=== PATIENT | female | born 1955 | race Caucasian/White ===

== ENCOUNTER 2016-08-16 11:15 | Emergency (ER) | payer OTHER ==
[~2016-08-16] VITALS: Ht 160 cm; Wt 71.5 kg
[~2016-08-16 11:15] MED LIST: HYDR25TA PO
[2016-08-16 11:37] VITALS: BP 157/95
== END 2016-08-16 12:48 | disposition home or self-care (01) ==
LOC: EMS 11:16
DX: S01.91XA Laceration without foreign body of unspecified part of head, initial encounter (principal); W61.92XA Struck by other birds, initial encounter; Y93.01 Activity, walking, marching and hiking; Y92.481 Parking lot as the place of occurrence of the external cause; Y99.8 Other external cause status
CPT/HCPCS: 99282

== ENCOUNTER → 2016-09-11 | Outpatient (CLI) | payer OTHER | END | disposition home or self-care (01) | LOC: EMPHLTH 10:52 | PROVIDERS: ATTEND Internal Medicine | DX: R76.11 Nonspecific reaction to tuberculin skin test without active tuberculosis (principal) ==

== ENCOUNTER 2017-07-04 09:07 | Day surgery (SDC) | payer OTHER ==
[~2017-07-04] VITALS: Ht 160 cm; Wt 71.4 kg
[~2017-07-04 09:07] MED LIST changes: +DICLOFENAC SODIUM 0.1% 2.5 ML OPHTHALMIC SOLUTION OD ONE; -HYDR25TA PO; +MOXIFLOXACIN HCL 0.5% 3 ML OPHTHALMIC SOLUTION OD ONE; +RINGERS SOLUTION,LACTATED 500 ML IV ONE
[2017-07-04] MEDS ORDERED: FentaNYL CITRATE-PF 100 MCG/2 ML VIAL IVP ONE (09:08)
[2017-07-04] MEDS ORDERED: MIDAZOLAM HCL 2 MG/2 ML VIAL IVP ONE (09:08)
[2017-07-04] MEDS ORDERED: RINGERS SOLUTION,LACTATED 500 ML IV ONE (09:13)
[2017-07-04] MEDS ORDERED: DICLOFENAC SODIUM 0.1% 2.5 ML OPHTHALMIC SOLUTION ONE (09:13)
[2017-07-04] MEDS ORDERED: MOXIFLOXACIN HCL 0.5% 3 ML OPHTHALMIC SOLUTION ONE (09:13)
[2017-07-04] MEDS ORDERED: MitoMYcin 0.2 MG/VIAL KIT FOR OPHTHALMIC USE OD ONE (10:30)
[2017-07-04] MEDS ORDERED: LIDOCAINE HCL 1%/EPI 1:200,000/PF 10 ML VIAL ONE (11:59)
[2017-07-04] MEDS ORDERED: BUPIVACAINE HCL/PF 0.75% 10 ML VIAL ONE (11:59)
== END 2017-07-04 13:25 | disposition home or self-care (01) ==
LOC: SURGERY 09:07
PROVIDERS: ATTEND Specialist
DX: H11.051 Peripheral pterygium, progressive, right eye (principal); I11.9 Hypertensive heart disease without heart failure; Z87.891 Personal history of nicotine dependence; Z98.890 Other specified postprocedural states; Z91.048 Other nonmedicinal substance allergy status
CPT/HCPCS: 65426; 88304; 93005; C1768; J2250; J3010; J3490 ×2; J7120